=== PATIENT | female | born 1965 | race Caucasian/White ===

== ENCOUNTER 2016-07-24 16:19 | Emergency (ER) | payer OTHER ==
[2016-07-24 16:27] VITALS: TEMP 98.3; BMI 35.2
--- NOTE | 2016-07-24 17:38 | PDOC ---
History of Present Illness - General Chief Complaint: Pain Stated Complaint: PAIN Time Seen by Provider: 07/24/16 17:35 History Source: Patient Exam Limitations: No Limitations - History of Present Illness Initial Comments: 07/24/16 17:37 CHIEF COMPLAINT: Abdominal pain HISTORY OF PRESENT ILLNESS: This is an otherwise healthy 50 year old female who presents for evaluation of two days of intermittent upper abdominal pain. She reports that the pain is moderate in intensity, squeezing in character ("feels like a ball") and associated with nausea/vomiting and diarrhea as well as "cold sweats". She denies fevers/chills, hematemesis, hematochezia, dysuria, or any other symptoms. The pain does not seem to be worsened by or improved by eating, but she does note that it seemed to start after eating chili yesterday. Vital signs on arrival are unremarkable. Surgical history: C/s REVIEW OF SYSTEMS: GENERAL/CONSTITUTIONAL: No fever or chills. No weakness. No weight change. HEAD, EYES, EARS, NOSE AND THROAT: No change in vision. No ear pain or discharge. No sore throat. CARDIOVASCULAR: No chest pain or palpitations. RESPIRATORY: No cough, wheezing, or shortness of breath. GASTROINTESTINAL: See HPI. GENITOURINARY: No dysuria, frequency, or change in urination. MUSCULOSKELETAL: No joint or muscle swelling or pain. No neck or back pain. SKIN: No rash or easy bruising. NEUROLOGIC: No headache, vertigo, loss of consciousness, or loss of sensation. PSYCHIATRIC: No depression or anxiety. ENDOCRINE: No increased thirst. No abnormal weight change. HEMATOLOGIC/LYMPHATIC: No anemia, easy bleeding, or history of blood clots. ALLERGIC/IMMUNOLOGIC: No hives or skin allergy. No latex allergy. PHYSICAL EXAM: GENERAL: The patient is awake, alert, and fully oriented, in no acute distress. ENT: Pupils equal, round and reactive to light, extraocular movements intact, sclera anicteric, conjunctiva clear. Neck supple. LUNGS: Clear to auscultation bilaterally. Normal excursion. No respiratory distress or use of accessory muscles. CV: RRR, S1/S2, no MRG. Cap refill < 2 sec. ABDOMEN: Soft, non-distended, tender to palpation in epigastrium > RUQ. EXTREMITIES: Normal range of motion, no edema. NEUROLOGICAL: Normal speech, normal gait. CN II-XII grossly intact. PSYCH: Normal mood, normal affect. SKIN: Warm, dry, normal turgor, no rashes or lesions noted. Past History - Past Medical History Allergies/Adverse Reactions: Allergies Allergy/AdvReac Type Severity Reaction Status Date / Time No Known Allergies Allergy Verified 07/24/16 16:24 Home Medications: Ambulatory Orders Ibuprofen [Motrin] 800 mg PO TID #20 tablet 06/20/11 Oxycodone HCl/Acetaminophen [Percocet 5-325 mg Tablet] 1 each PO Q4H PRN #10 tablet 06/20/11 Oxycodone HCl/Acetaminophen [Percocet 5-325 mg Tablet] 1 tab PO Q6H PRN #20 tablet MDD 4 tabs 07/24/16 - Psycho/Social/Smoking Cessation Hx Anxiety: No Suicidal Ideation: No Smoking Status: No Smoking History: Never smoked Have you smoked in the past 12 months: No Number of Cigarettes Smoked Daily: 0 Information on smoking cessation initiated: No Hx Alcohol Use: No Drug/Substance Use Hx: No Substance Use Type: None *Physical Exam - Vital Signs Last Vital Signs Temp Pulse Resp BP Pulse Ox 98.3 F 77 18 112/73 100 07/24/16 16:24 07/24/16 16:24 07/24/16 16:24 07/24/16 16:24 07/24/16 16:24 ED Treatment Course - LABORATORY CBC & Chemistry Diagram: 07/24/16 18:27 07/24/16 18:27 Medical Decision Making - Medical Decision Making 07/24/16 18:57 A/P: 50 year old female with upper abdominal pain and n/v/d. 1. EKG 2. Abdominal and cardiac labs 3. Pepcid and Maalox for symptomatic relief 4. Gallbladder u/s 5. Re-assess 07/24/16 20:35 Ultrasound interpreted by radiology: cholelithiasis with possible chronic cholecystitis. No evidence of acute cholecystitis. WBC within normal limits at 5.2, patient afebrile. Re-evaluated and feeling better. Will refer for outpatient surgical followup. Patient to return if pain is uncontrolled or has fever. *DC/Admit/Observation/Transfer Diagnosis at time of Disposition: Biliary colic - Discharge Dispostion Disposition: HOME Condition at time of disposition: Stable Admit: No - Prescriptions Prescriptions: Oxycodone HCl/Acetaminophen [Percocet 5-325 mg Tablet] 1 tab PO Q6H PRN #20 tablet MDD 4 tabs PRN Reason: Pain - Referrals Referrals: Walt Blake MD [Staff Physician] - 2 Days (Surgery) - Patient Instructions Printed Discharge Instructions: DI for Gallstones Additional Instructions: -Rest and stay well-hydrated -Take Percocet as prescribed for pain -Avoid fatty/greasy foods -Follow up with the surgeon (contact information enclosed) as discussed -Return here for uncontrolled pain, fever, or any other concerning symptoms
[2016-07-24] MEDS ORDERED: FAMOTIDINE 20 MG/50 ML IVPB 20 MG in PREMIX 50 IVPB ONE (18:06)
[2016-07-24] MEDS ORDERED: MAG HYDROX/AL HYDROX/SIMETH 355 ML ORAL.SUSP PO ONE (18:06)
[2016-07-24 18:38] LABS: BASOPHIL 0.6 % (0-2.0); EOSINOPHIL 2.8 % (0-4.5); MCH 30.6 pg (25.7-33.7); MCHC 33.6 g/dl (32.0-36.0); MEAN CELL VOLUME 90.9 fl (80-96); MEAN PLT VOLUME 6.6 fl (7.5-11.1); NEUTROPHILS 56.6 % (42.8-82.8); PLATELET COUNT 266 K/MM3 (134-434); RDW 13.5 % (11.6-15.6); WHITE BLOOD COUNT 5.2 K/mm3 (4.0-10.0)
--- NOTE | 2016-07-24 19:02 | PDOC ---
[id number]/73 100 07/24/16 16:24 07/24/16 16:24 07/24/16 16:24 07/24/16 16:24 07/24/16 16:24 ED Treatment Course - LABORATORY CBC & Chemistry Diagram: 07/24/16 18:27 07/24/16 18:27 - ADDITIONAL ORDERS Additional order review: 07/24/16 18:27 RBC 4.20 MCV 90.9 MCHC 33.6 RDW 13.5 MPV 6.6 L Neutrophils % 56.6 D Lymphocytes % 33.2 D Monocytes % 6.8 Eosinophils % 2.8 D Basophils % 0.6 Medical Decision Making - Medical Decision Making 07/24/16 19:02 Pt seen by the Advanced Practice Provider under my direct supervision Ancillary studies reviewed I agree with plan as outlined by the Advanced Practice Provider [facility] *DC/Admit/Observation/Transfer Diagnosis at time of Disposition: Biliary colic - Discharge Dispostion Disposition: HOME - Referrals Referrals: Walt Blake MD [Staff Physician] - 2 Days (Surgery) - Patient Instructions Printed Discharge Instructions: DI for Gallstones Additional Instructions: -Rest and stay well-hydrated -Take Percocet as prescribed for pain -Avoid fatty/greasy foods -Follow up with the surgeon (contact information enclosed) as discussed -Return here for uncontrolled pain, fever, or any other concerning symptoms
[2016-07-24 19:07] LABS: ALBUMIN 3.3 g/dl (3.4-5.0); ALK PHOS 97 U/L (45-117); ANION GAP 10 (8-16); BILIRUBIN,TOTAL 0.3 mg/dL (0.2-1.0); CALCIUM 8.6 mg/dL (8.5-10.1); CO2 26 mmol/L (21-32); COCKROFT - GAULT 125.2985; CREATININE 0.7 mg/dL (0.55-1.02); GLUCOSE,RANDOM 134 mg/dL (74-106); SGOT/AST 24 U/L (15-37); SGPT/ALT 73 U/L (12-78); TOT PROT 6.4 g/dl (6.4-8.2)
[2016-07-24 19:09] LABS: TROPONIN I < 0.02 ng/ml (0.00-0.05)
[2016-07-24] MEDS ORDERED: MAG HYDROX/AL HYDROX/SIMETH 30 ML UNIT-DOSE CUP ONE (19:29)
[2016-07-24] MEDS ORDERED: FAMOTIDINE 20 MG/50 ML IVPB 50 ML IVPB ONE (19:30)
[2016-07-24 23:00] VITALS: BP 115/68; PULSE 72
--- NOTE | 2016-07-25 09:17 | EKG ---
Test Reason : Blood Pressure : / mmHG Vent. Rate : 066 BPM Atrial Rate : 066 BPM P-R Int : 148 ms QRS Dur : 072 ms QT Int : 426 ms P-R-T Axes : 042 035 043 degrees QTc Int : 446 ms POOR DATA QUALITY, INTERPRETATION MAY BE ADVERSELY AFFECTED NORMAL SINUS RHYTHM NORMAL ECG NO PREVIOUS ECGS AVAILABLE Confirmed by ROSANGELA CALHOUN MD ([id number]) on 07/25/2016 9:17:04 AM Referred By: Confirmed By:ROSANGELA CALHOUN MD
== END 2016-07-24 20:55 | disposition home or self-care (01) ==
LOC: JER 16:19
PROC: 3E023GC Introduction of Other Therapeutic Substance into Muscle, Percutaneous Approach (ICD-10-PCS; principal; 2016-07-24)
DX: K80.50 Calculus of bile duct without cholangitis or cholecystitis without obstruction (principal)
CPT/HCPCS: 36415; 76705-TC; 80053; 82550; 83690; 84484; 85025; 93005; 93010; 99283-25

== ENCOUNTER 2025-01-01 19:45 | Emergency (ER) | payer OTHER ==
[2025-01-01 20:09] VITALS: BP 112/52; PULSE 72; RESP 16; TEMP 97.5; BMI 33.9
[2025-01-02] MEDS ORDERED: ACETAMINOPHEN 500 MG TABLET (FP) ONE (00:05)
[2025-01-02] MEDS: ACETAMINOPHEN 500 MG TABLET (FP) PO ONE (00:06)
== END 2025-01-02 00:22 | disposition home or self-care (01) ==
LOC: FER 19:45
DX: S82.111A Displaced fracture of right tibial spine, initial encounter for closed fracture (principal); W10.8XXA Fall (on) (from) other stairs and steps, initial encounter
CPT/HCPCS: 73502-TC-RT-FY; 73560-TC-RT-FY; 73590-TC-RT-FY; 73700-TC-RT; 99284-25